=== PATIENT | female | born 1960 | race Two or more races ===

== ENCOUNTER 2018-10-06 11:18 | Inpatient (IN) | payer MEDICARE, OTHER ==
[~2018-10-06] VITALS: Ht 162.6 cm; Wt 62.3 kg
--- NOTE | 2018-10-06 11:43 | NUR ---
[id number], C/O CP NON RADIATING SINCE LAST NIGHT, METH USER FOR MORE THAN 3 YEARS, EVERYDAY. PT APPEARS VERY ANXIOUS, TACHYPNEIC. AOX3, AMBULATORY. SKIN INTACT, DENIES DIZZINESS, WEAKNESS, N/V. ENCOURAGED TO SLOW BREATHING AND BREATHE IN NOSE, OUT MOUTH. MADE COMFORTABLE. ON MONITOR AND READY FOR EVAL.
[2018-10-06] MEDS ORDERED: LORAZEPAM INJ 2 MG/ML VIAL ONE (11:48)
[2018-10-06] MEDS ORDERED: ASPIRIN 81 MG TAB.CHEW ONE (11:52)
[2018-10-06 12:00] LABS: BASOPHILS # (AUTO) 0.1 /CMM (0.0-0.2); BASOPHILS % (AUTO) 0.5 % (0.0-2.0); EOSINOPHILS % (AUTO) 0.1 % (0.0-6.0); HEMATOCRIT 33 % (33-45); HEMOGLOBIN 10.8 g/dL (11.5-14.8); LYMPHOCYTES # (AUTO) 2.2 /CMM (0.8-4.8); LYMPHOCYTES % (AUTO) 13.8 % (20.0-44.0); MEAN CORPUSCULAR HGB CONC 33 g/dl (31.0-36.0); MEAN CORPUSCULAR VOLUME 85 fL (82-100); MONOCYTES # (AUTO) 0.5 /CMM (0.1-1.30); MONOCYTES % (AUTO) 3.2 % (2.0-12.0); NEUTROPHILS # (AUTO) 13.3 /CMM (1.8-8.9); NEUTROPHILS % (AUTO) 82.4 % (43.0-81.0); PLATELET COUNT (AUTO) 482 /CMM (150-450); WHITE BLOOD COUNT (AUTO) 16.2 K/uL (4.3-11.0)
[2018-10-06] MEDS ORDERED: IV NS 0.9% 1,000 ML BAG IV ONE (12:00)
[2018-10-06] MEDS ORDERED: LORAZEPAM INJ 2 MG/ML VIAL IV ONE (12:00)
[2018-10-06] MEDS ORDERED: ASPIRIN 81 MG TAB.CHEW PO ONE (12:00)
--- NOTE | 2018-10-06 12:00 | NUR ---
XRAY AT BEDSIDE
[2018-10-06 12:13] LABS: CALCIUM, SERUM 10.1 mg/dL (8.5-10.1); CARBON DIOXIDE 29 mmol/L (21-32); CHLORIDE 100 mmol/L (98-107); CREATININE 0.6 mg/dL (0.6-1.3); GLUCOSE 111 mg/dL (74-106); POTASSIUM 3.3 mmol/L (3.5-5.1); SODIUM SERUM 134 mmol/L (136-145); UREA NITROGEN, BLOOD 8 mg/dL (7-18)
[2018-10-06 12:19] LABS: ALANINE AMINOTRANSFERASE 20 U/L (12-78); ALBUMIN 2.4 g/dL (3.4-5.0); ALKALINE PHOSPHATASE 114 U/L (46-116); ASPARTATE AMINOTRANSFERASE 14 U/L (15-37); BILIRUBIN,DIRECT 0.1 mg/dL (0.0-0.2); BILIRUBIN,TOTAL 0.4 mg/dL (0.2-1.0); TOTAL PROTEIN, SERUM 7.9 g/dL (6.4-8.2)
--- NOTE | 2018-10-06 13:40 | NUR ---
PT UP TO USE RESTROOM. STATES SHE NO LONGER FEELS CHEST PAIN
[2018-10-06] MEDS ORDERED: BUPR300T52 PO (13:53)
[2018-10-06] MEDS ORDERED: PIPERACILLIN /TAZOBACTAM 3.375 G in IV D5W 50 ML IV ONE (14:00)
[2018-10-06] MEDS ORDERED: PIPERACILLIN /TAZOBACTAM 3.375 G VIAL IV ONE (14:18)
--- NOTE | 2018-10-06 14:28 | NUR ---
SECOND LINE PLACED FOR CTA, RIGHT AC 20G
[2018-10-06] MEDS ORDERED: IOHEXOL-350 100 ML VIAL IV ONE (14:33)
[2018-10-06] MEDS ORDERED: CT SWABBABLE VALVE TRANS SET 1 EA INFUS.SET MC ONE (14:34)
[2018-10-06] MEDS ORDERED: IV NS 0.9% 250 ML IV ONE (14:34)
--- NOTE | 2018-10-06 14:44 | NUR ---
PT TAKEN TO CT VIA [facility]
--- NOTE | 2018-10-06 14:56 | NUR ---
PT BACK FROM CT. [facility].
--- NOTE | 2018-10-06 15:03 | NUR ---
ADMIT TO ROOM 315-2 DX PNEUMONIA ACCEPTING ISAIAH DELCUA
--- NOTE | 2018-10-06 15:16 | NUR ---
REPORT GIVEN TO YOAV FOR 315-2 TELE FOR GUSTAVO
[2018-10-06] MEDS ORDERED: MORPHINE SULFATE INJ 2 MG/ML DISP.SYRIN IV ONE (17:00)
[2018-10-06] MEDS ORDERED: MORPHINE SULFATE INJ 4 MG/ML DISP.SYRIN ONE (17:08)
--- NOTE | 2018-10-06 17:24 | NUR ---
PT COMPLAINING OF RETURNING CHEST PAIN 02/20. MD NOTIFIED
--- NOTE | 2018-10-06 18:13 | NUR ---
ASSISTED PT TO RESTROOM. OBTAINED URINE SAMPLE AND SENT TO STAT LAB.
[2018-10-06 18:15] LABS: APPEARANCE,URINE Clear (CLEAR); BILIRUBIN,URINE Negative (NEGATIVE); BLOOD, URINE Negative Ery/uL (NEGATIVE); COLOR,URINE Yellow (YELLOW); KETONES,URINE Negative (NEGATIVE); LEUKOCYTE ESTERASE ,URINE Negative (NEGATIVE); NITRITE, URINE Negative (NEGATIVE); PROTEIN,URINE Negative (NEGATIVE); UGLUCOSE Negative (NEGATIVE); UROBILINOGEN,URINE 0.2 EU/dL (0.2)
--- NOTE | 2018-10-06 18:32 | NUR ---
[facility]
--- NOTE | 2018-10-06 18:45 | NUR ---
RN NOTES PATIENT RECEIVED FROM [facility], A/OX4, DENIES CHEST PAIN AT THIS TIME. PLACED ON THE MONITOR. RHYTHM SHOWS SINUS TACHY 111. BREATHING EVEN AND UNLABORED, NO SOB NOTED. NEEDS ATTENDED, CALL LIGHT WITHIN REACH, WILL ENDORSE TO STUDENT SUPPORT SERVICES DIRECTOR FOR GUSTAVO.
[2018-10-06 19:03] VITALS: BP 150/83
--- NOTE | 2018-10-06 19:20 | NUR ---
TELE/RN NOTES RECEIVED PT. LYING IN BED RESTING. PT. IS EASILY AROUSABLE TO NAME. AWAKE, ALERT AND ORIENTED X3. BREATHING EVEN AND UNLABORED ON ROOM AIR. NO SOB, RESPIRATORY DISTRESS OR COMPLAINTS OF PAIN NOTED AT THIS TIME. NO COMPLAINTS OF CHEST PAIN NOTED AT THIS TIME. PT. WITH EXTERNAL B2B OUTSIDE SALES REPRESENTATIVE PRESENT AND INTACT. CURRENT RHYTHM = SINUS TACHYCARDIA HR 112. PT. WITH LEFT FOREARM 20 GAUGE IV SALINE LOCK PRESENT, PATENT AND INTACT. PT. WITH RIGHT AC 20 GAUGE IV SALINE LOCK PRESENT, PATENT AND INTACT. PT. STATES SHE IS COMFORTABLE AND WANTS TO BE LEFT ALONE TO REST AT THIS TIME, SHE IS REFUSING FULL BODY ASSESSMENT AT THIS TIME. PT. REFUSING TO ALLOW CHECKING HER BELONGINGS AT THIS TIME. AWAITING ADMITTING ORDERS. BED LOCKED AND IN LOWEST POSITION, SIDE RAILS UP X2, CALL LIGHT WITHIN REACH, WILL CONTINUE TO MONITOR.
[2018-10-06 20:00] VITALS: BP 150/83
[2018-10-06] MEDS ORDERED: Z GUARD REMEDY 2 OZ OINT TP PRN (20:00)
[2018-10-06] MEDS ORDERED: LORAZEPAM INJ 2 MG/ML VIAL IV PRN (20:00)
[2018-10-06] MEDS ORDERED: HYDROCODONE/APAP 5/325MG 1 EACH TABLET PO PRN (20:00)
[2018-10-06] MEDS ORDERED: MAG HYDROX/AL HYDROX/SIMETH 30 ML UDC PO PRN (20:00)
[2018-10-06] MEDS ORDERED: MAGNESIUM HYDROXIDE 30 ML UDC PO PRN (20:00)
[2018-10-06] MEDS ORDERED: ACETAMINOPHEN 325 MG TABLET PO PRN (20:00)
[2018-10-06] MEDS ORDERED: ALBUTEROL FS 2.5 MG/3 ML VIAL.NEB NEB PRN (20:00)
[2018-10-06] MEDS ORDERED: ONDANSETRON HCL/PF 4 MG/2 ML VIAL IVP PRN (20:00)
[2018-10-06] MEDS ORDERED: ZOLPIDEM TARTRATE 5 MG TABLET PO PRN (20:00)
[2018-10-06] MEDS ORDERED: MORPHINE SULFATE INJ 2 MG/ML DISP.SYRIN IV PRN (20:00)
[2018-10-06] MEDS ORDERED: IPRATROPIUM NEB FS 0.5 MG/2.5 ML AMPUL.NEB NEB PRN (20:00)
[2018-10-06] MEDS ORDERED: PIPERACILLIN /TAZOBACTAM 3.375 G in IV D5W 100 ML IV SCH (21:00)
[2018-10-06] MEDS ORDERED: VANCOMYCIN 1 GM in IV NS 0.9% 250 ML IV SCH (22:00)
[2018-10-06] MEDS ORDERED: VANCOMYCIN 1 GM VIAL ONE (22:04)
[2018-10-07] VITALS: BP_SYST 150; BP_SYST 168; BP_DIAS 80; BP_DIAS 83
[2018-10-07] MEDS ORDERED: PIPERACILLIN /TAZOBACTAM 3.375 G VIAL IV ONE (00:55)
--- NOTE | 2018-10-07 01:26 | NUR ---
TELE/RN NOTES PER CHARGE NURSE SAYDA EXTENDED DOSE OF ZOSYN 3.375G IVPB IS NOT AVAILABLE. CALLED [facility] SPOKE TO LANA SHE STATED OK TO RUN ZOSYN 3.375G IN 50ML OVER 30 MIN AND TO FOLLOW UP WITH PHARMACY IN THE MORNING TO CONTINUE WITH EXTENDED ZOSYN.
[2018-10-07 04:00] VITALS: BP 135/81
--- NOTE | 2018-10-07 06:55 | NUR ---
TELE/RN NOTES PT. IS LYING IN BED RESTING. BREATHING EVEN AND UNLABORED ON ROOM AIR. NO SOB, RESPIRATORY DISTRESS OR COMPLAINTS OF PAIN NOTED AT THIS TIME. PT. WITH EXTERNAL PRECAST MOLDER PRESENT AND INTACT. CURRENT RHYTHM = SINUS TACHYCARDIA HR 103. PT. WITH LEFT FOREARM 20 GAUGE IV SALINE LOCK PRESENT, PATENT AND INTACT. PT. WITH RIGHT AC 20 GAUGE IV SALINE LOCK PRESENT, PATENT AND INTACT. ALL PT. NEEDS MET. BED LOCKED AND IN LOWEST POSITION, SIDE RAILS UP X2, CALL LIGHT WITHIN REACH, WILL ENDORSE TO DAYSHIFT NURSE FOR CONTINUITY OF CARE.
[2018-10-07 07:18] LABS: BASOPHILS # (AUTO) 0.1 /CMM (0.0-0.2); BASOPHILS % (AUTO) 0.9 % (0.0-2.0); EOSINOPHILS % (AUTO) 0.8 % (0.0-6.0); HEMATOCRIT 31 % (33-45); HEMOGLOBIN 10.1 g/dL (11.5-14.8); LYMPHOCYTES # (AUTO) 3.5 /CMM (0.8-4.8); LYMPHOCYTES % (AUTO) 37.6 % (20.0-44.0); MEAN CORPUSCULAR HGB CONC 33 g/dl (31.0-36.0); MEAN CORPUSCULAR VOLUME 84 fL (82-100); MONOCYTES % (AUTO) 10.6 % (2.0-12.0); NEUTROPHILS # (AUTO) 4.7 /CMM (1.8-8.9); NEUTROPHILS % (AUTO) 50.1 % (43.0-81.0); PLATELET COUNT (AUTO) 535 /CMM (150-450); RED BLOOD CELL COUNT(AUTO) 3.64 MIL/uL (4.0-5.2); WHITE BLOOD COUNT (AUTO) 9.4 K/uL (4.3-11.0)
[2018-10-07 07:40] LABS: CALCIUM, SERUM 9.5 mg/dL (8.5-10.1); CARBON DIOXIDE 29 mmol/L (21-32); CHLORIDE 101 mmol/L (98-107); CREATININE 0.5 mg/dL (0.6-1.3); GLUCOSE 93 mg/dL (74-106); MAGNESIUM 1.5 mg/dL (1.8-2.4); SODIUM SERUM 138 mmol/L (136-145); UREA NITROGEN, BLOOD 4 mg/dL (7-18)
[2018-10-07] MEDS ORDERED: FEE PK DOSING 1 MIN EA MC ONE (07:46)
[2018-10-07 07:52] LABS: CHOLESTEROL 121 mg/dL (<200); HDL CHOLESTEROL 47 mg/dL (40-60); LDL 70 mg/dL (0-99); THYROID STIMULATING HORMONE < 0.007 uIU/mL (0.358-3.74); TRIGLYCERIDES 52 mg/dL (30-150)
[2018-10-07 08:00] VITALS: BP 141/78
--- NOTE | 2018-10-07 08:00 | NUR ---
MANAGED SERVICES SALES CONSULTANT NOTES PATIENT IN BED RESTING NO SOB OR ACUTE DISTRESS NOTED. PATIENT ALERT, ORIENTED X4. AMBULATORY. BED IN LOW LOCKED POSITION. CALL LIGHT WITHIN REACH. WILL CONTINUE TO MONITOR.
[2018-10-07] MEDS: PANTOPRAZOLE 40 MG TABLET.DR PO SCH (08:55)
[2018-10-07] MEDS: DOCUSATE SODIUM 100 MG CAPSULE PO SCH ×2 (08:56→17:26)
[2018-10-07] MEDS: POTASSIUM CHLORIDE 20 MEQ TAB.PRT.SR PO SCH ×2 (08:56→09:58)
[2018-10-07] MEDS: ASPIRIN 81 MG TAB.CHEW PO SCH (08:56)
[2018-10-07] MEDS: PIPERACILLIN /TAZOBACTAM 3.375 G in IV D5W 100 ML IV SCH ×2 (08:57→17:26)
[2018-10-07] MEDS: VANCOMYCIN 1 GM in IV D5W 250 ML IV SCH ×2 (09:46→21:11)
[2018-10-07] MEDS: POTASSIUM CL. PREMIX PERIPHER. 50 ML IV SCH ×4 (11:00→14:46)
--- NOTE | 2018-10-07 11:13 | NUR ---
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 SW met with pt. bedside. Pt. is alert and oriented x 4. Pt. has a sad affect. Pt. is pleasant and cooperative with SW during the assessment. Pt. resides alone at [address] [place] [address], in [facility] [facility]. Pt's emergency contact is her son Rohan Scanlon . Pt. did confirm that she uses crystal methamphetamines daily and has been for the past 3 years. Pt. has been to several inpatient rehabilitation programs and the last one she attended was 3 to 5 years ago. Pt. is interested in attending an Outpatient treatment program at [facility]. SW to refer pt. to [facility]. Pt. states she drinks alcohol every now and then and when she does she drinks a beer. Pt. has a history of Bipolar and is taking Wellbutrin. Pt. denies any suicidal and homicidal ideations or visual/auditory hallucinations at this time. Addendum: 10/07/18 at 1122 by CHRISTIAN THOMPSON DONNA left a voicemail message for MARYURI Gore at [facility] [phone] inquiring about referral process for the pt. to their outpatient rehabilitation program.
[2018-10-07] MEDS: Magnesium 1GM/D5W 100ML PREMIX 100 ML IV SCH ×2 (12:17→13:21)
[2018-10-07 16:00] VITALS: BP 147/81
[2018-10-07] MEDS ORDERED: POTASSIUM CHLORIDE 20 MEQ TAB.PRT.SR PO ONE (16:00)
--- NOTE | 2018-10-07 16:03 | NUR ---
SW received a call back from Garrett Abreu x [phone] from [facility] informing SW that pt. qualifies for their outpatient treatment and to have pt. call him for an intake. DONNA met with pt. bedside to give her Garrett Abreu's contact number and informed pt to give him a call to schedule an intake appointment.
--- NOTE | 2018-10-07 19:30 | NUR ---
MS RN NOTES PATIENT IN BED RESTING NO SOB OR ACUTE DISTRESS NOTED. ALL DUE MEDICATIONS ADMINISTERED. ALL NEEDS MET. PATIENT ALERT, ORIENTED X3. DENIES ANY PAINT OR DISCOMFORT. NEW PERIPHERAL IV STARTED ON RIGHT WRIST G22 INTACT PATENT. ENDORSED CARE TO PM SHIFT.
--- NOTE | 2018-10-07 19:31 | NUR ---
MS RN OPENING NOTES Received patient A/O x3, ambulatory to bathroom without assitance noted. Patient on RA, no SOB/respiratory distress noted. With patent W wrist peripheral IV line with Zosyn infusing as ordered. Kept on bed clean, dry and comfortable. Side rails x2 up, call light within easy reach. will continue to monitor accordingly.
[2018-10-07 20:00] VITALS: BP 138/87
--- NOTE | 2018-10-07 20:30 | NUR ---
MS RN NOTES Patient noted on semi-Newman's position. Patient claimed no coughing, with minimal chest pain with inhalation. Encouraged patient to assume Newman's position comfortably, patient claimed no pain on inhalation at this position. Warren was offered per patient's request. Call light within easy reach. Will continue to monitor accordingly.
--- NOTE | 2018-10-07 23:13 | NUR ---
MS RN NOTES Patient complained pain at R wrist with Vanco 1G at 250ml/hr as ordered. Transferred to [facility] @ 250ml/hr, patient complained pain. Rechecked for IV line patency, remained patent. Reduced rate to 125ml/hr with ice pack, patient tolerating well, able to sleep. Notified pharmacy, spoke with Stanislav, no problem with rate. Will continue to monitor the patient accordingly.
[2018-10-08] MEDS: PIPERACILLIN /TAZOBACTAM 3.375 G in IV D5W 100 ML IV SCH ×3 (00:07→16:54)
--- NOTE | 2018-10-08 00:51 | NUR ---
MS RN NOTES R WRIST IV SITE NOTED INFILTRATED. D/C SITE, APPLIED ICE PACK. TOLERATED BY THE PATIENT WELL, ABLE TO GO BACK TO SLEEP. WILL CONTINUE TO MONITOR ACCORDINGLY.
[2018-10-08] MEDS ORDERED: VANCOMYCIN 1 GM in IV D5W 250 ML IV SCH ×2 (06:30→10:00)
--- NOTE | 2018-10-08 06:39 | NUR ---
MS RN CLOSING NOTES Patient asleep at this time. IV meds administered as ordered. R wrist pain and swelling subsided, patient claimed not painful at this time. Noted ambulating to bathroom independently, steady gait. All nursing needs attended. Kept clean, dry and comfortable. Call light within easy reach. Endorsed to the next shift.
[2018-10-08 06:47] LABS: BASOPHILS # (AUTO) 0.1 /CMM (0.0-0.2); BASOPHILS % (AUTO) 1.4 % (0.0-2.0); EOSINOPHILS % (AUTO) 1.1 % (0.0-6.0); HEMATOCRIT 35 % (33-45); HEMOGLOBIN 11.9 g/dL (11.5-14.8); LYMPHOCYTES # (AUTO) 3.4 /CMM (0.8-4.8); LYMPHOCYTES % (AUTO) 41.9 % (20.0-44.0); MEAN CORPUSCULAR HGB CONC 34 g/dl (31.0-36.0); MEAN CORPUSCULAR VOLUME 84 fL (82-100); MONOCYTES # (AUTO) 0.7 /CMM (0.1-1.30); NEUTROPHILS # (AUTO) 3.8 /CMM (1.8-8.9); NEUTROPHILS % (AUTO) 46.6 % (43.0-81.0); PLATELET COUNT (AUTO) 585 /CMM (150-450); RED BLOOD CELL COUNT(AUTO) 4.19 MIL/uL (4.0-5.2); WHITE BLOOD COUNT (AUTO) 8.1 K/uL (4.3-11.0)
[2018-10-08 06:53] LABS: CALCIUM, SERUM 10.3 mg/dL (8.5-10.1); CREATININE 0.5 mg/dL (0.6-1.3); MAGNESIUM 1.9 mg/dL (1.8-2.4); PHOSPHORUS 4.2 mg/dL (2.5-4.9); POTASSIUM 3.8 mmol/L (3.5-5.1)
[2018-10-08 08:00] VITALS: BP 148/86
--- NOTE | 2018-10-08 08:00 | NUR ---
MS RN NOTES PATIENT IN BED RESTING NO SOB OR ACUTE DISTRESS NOTED. PATIENT ALERT, ORIENTED X3. DENIES ANY PAIN. PERIPHERAL IV INTACT PATENT. BED IN LOW LOCKED POSITION. CALL LIGHT WITHIN REACH. WILL CONTINUE TO MONITOR.
[2018-10-08] MEDS: PANTOPRAZOLE 40 MG TABLET.DR PO SCH (09:14)
[2018-10-08] MEDS: DOCUSATE SODIUM 100 MG CAPSULE PO SCH ×2 (09:14→16:57)
[2018-10-08] MEDS: ASPIRIN 81 MG TAB.CHEW PO SCH (09:14)
[2018-10-08] MEDS ORDERED: IV NS 0.9% 250 ML IV ONE (12:01)
[2018-10-08] MEDS ORDERED: IOHEXOL-350 100 ML VIAL IV ONE (12:01)
[2018-10-08] MEDS ORDERED: CT SWABBABLE VALVE TRANS SET 1 EA INFUS.SET MC ONE (12:01)
[2018-10-08 16:00] VITALS: BP 137/85
[2018-10-08] MEDS: VANCOMYCIN 1 GM in IV D5W 250 ML IV SCH (17:02)
--- NOTE | 2018-10-08 19:36 | NUR ---
MS RN NOTES PATIENT IN BED RESTING ALL DUE MEDICATIONS ADMINISTERED. ALL NEEDS MET. PERIPHERAL IV INTACT PATENT. PATIENT ALERT, ORIENTED X3. ENDORSED CARE TO PM SHIFT.
--- NOTE | 2018-10-08 19:49 | NUR ---
MS YUE INITIAL NOTES SEEN PT IN HER ROOM JUST GOT BACK USING RESTROOM. SHE REQUESTED TO BE HEPLOCK FOR NOW BECAUSE ITS DIFFICULT FOR HER WALKING WITH HER IV POLL. I TOLD HER JUST CALL US IF SHE NEEDS SOME HELPED. RFA HEPLOCK PATENT AND INTACT. DENIES ANY PAIN OR ANY DISCOMFORT. KEPT HER WARM AND COMFORTABLE AT ALL TIMES. WILL CONTINUE MONITORING.
[2018-10-08 20:00] VITALS: BP 156/83
[2018-10-08 20:17] VITALS: BP 156/83
--- NOTE | 2018-10-09 | NUR ---
MS YUE NOTES PT SLEEPING COMFORTABLY IN BED WITHOUT ANY ACUTE DISTRESS NOTED. ZOSYN IVP BAG WILL BE DUE AT 0100 AM AND BE HUNG BY ANOTHER NURSE ORDERED. WILL CONTINUE MONITORING. PLACE CALL LIGHT AT REACH.
[2018-10-09] MEDS: PIPERACILLIN /TAZOBACTAM 3.375 G in IV D5W 100 ML IV SCH ×2 (01:06→08:28)
[2018-10-09] MEDS: VANCOMYCIN 1 GM in IV D5W 250 ML IV SCH ×2 (02:03→10:52)
[2018-10-09 06:48] LABS: BASOPHILS # (AUTO) 0.1 /CMM (0.0-0.2); BASOPHILS % (AUTO) 1.1 % (0.0-2.0); EOSINOPHILS % (AUTO) 0.9 % (0.0-6.0); HEMATOCRIT 35 % (33-45); HEMOGLOBIN 11.7 g/dL (11.5-14.8); LYMPHOCYTES # (AUTO) 2.9 /CMM (0.8-4.8); LYMPHOCYTES % (AUTO) 38.4 % (20.0-44.0); MEAN CORPUSCULAR HGB CONC 34 g/dl (31.0-36.0); MEAN CORPUSCULAR VOLUME 83 fL (82-100); MONOCYTES # (AUTO) 0.8 /CMM (0.1-1.30); NEUTROPHILS # (AUTO) 3.7 /CMM (1.8-8.9); NEUTROPHILS % (AUTO) 48.6 % (43.0-81.0); PLATELET COUNT (AUTO) 516 /CMM (150-450); RED BLOOD CELL COUNT(AUTO) 4.15 MIL/uL (4.0-5.2); WHITE BLOOD COUNT (AUTO) 7.5 K/uL (4.3-11.0)
--- NOTE | 2018-10-09 07:03 | NUR ---
MS PHOSPHORUS PROCESSING SUPERVISOR CLOSING NOTES PT REMAINS SLEEPING COMFORTABLY IN BED WITHOUT ANY DISCOMFORT OR DISTRESS NOTED. ALL DUE MEDS GIVEN AND ALL NEEDS MET. NO ADVERSE REACTION NOTED CISCO THE NIGHT. KEPT HER WARM AND COMFORTABLE AT ALL TIMES. IV LINE PATENT AND INTACT. PLACE CALL LIGHT AT REACH. WILL ENDORSE TO AM NURSE FOR CONTINUITY OF CARE.
[2018-10-09 07:23] LABS: CALCIUM, SERUM 10.6 mg/dL (8.5-10.1); CREATININE 0.6 mg/dL (0.6-1.3); MAGNESIUM 1.7 mg/dL (1.8-2.4); PHOSPHORUS 4.5 mg/dL (2.5-4.9); POTASSIUM 4.2 mmol/L (3.5-5.1)
--- NOTE | 2018-10-09 07:30 | NUR ---
m/s epic beacon analyst: initial assessment received pt in bed awake, a/ox4. no c/o sob, coughing, congestion, or any discomfort. instructed to call for assistance. will continue to monitor.
[2018-10-09 08:11] VITALS: BP 150/84
[2018-10-09] MEDS: PANTOPRAZOLE 40 MG TABLET.DR PO SCH (08:15)
[2018-10-09] MEDS: DOCUSATE SODIUM 100 MG CAPSULE PO SCH (08:15)
[2018-10-09] MEDS: ASPIRIN 81 MG TAB.CHEW PO SCH (08:15)
--- NOTE | 2018-10-09 10:00 | NUR ---
M/S BOARD WRITER: NOTES RESTING COMFORTABLE IN BED. SEEN AND EXAMINED BY ISAIAH (ACNP) AND UPDATED PLAN OF CARE. PT FOR [facility] THIS AFTERNOON. DISCHARGE INSTRUCTIONS GIVEN BY ISAIAH AND PT VERBALIZED UNDERSTANDING. PT WILL GO AFTER ANTIBIOTICS.
[2018-10-09] MEDS ORDERED: MAGNESIUM OXIDE 400 MG TABLET PO ONE (11:00)
[2018-10-09] MEDS ORDERED: Magnesium 1GM/D5W 100ML PREMIX 100 ML IV SCH (11:00)
--- NOTE | 2018-10-09 11:17 | NUR ---
SW was contacted by case management, Yancy Llanos, who stated that the pt would like a brochure for [facility]. DONNA went to meet with the pt in her room and provided her with a brochure. She stated that she spoke with Garrett Abreu ([phone]) from [facility] and that she will be going to the center once she is discharged from the hospital.
--- NOTE | 2018-10-09 12:00 | NUR ---
M/S SENIOR ORACLE DBA: NOTES LUNCH SERVED. INSTRUCTED TO CALL FOR ASSISTANCE. PT AWARE FOR [facility] TODAY.
--- NOTE | 2018-10-09 14:15 | NUR ---
M/S LITIGATION ATTORNEY: NOTES RECEIVED ORDER FROM ISAIAH ([facility]) WITH ORDER TO [facility]. ORDER ACKNOWLEDGED. PT AWARE. H/L REMOVED WITH TIP INTACT WITH NO BLEEDING, NO REDNESS, AND NO SWELLING NOTED.
--- NOTE | 2018-10-09 14:25 | NUR ---
M/S LINSEED OIL REFINER: NOTES PT WILL TAKE A BUS STATED. DISCHARGED INSTRUCTIONS WITH PRESCRIPTIONS GIVEN AND PT VERBALIZED UNDERSTANDING. MEDS TEACHING PROVIDED INCLUDING SIDE EFFECTS. PT IS DRESSED.
--- NOTE | 2018-10-09 14:27 | NUR ---
M/S REAL ESTATE LAWYER: DISCHARGED DISCHARGED HOME IN STABLE CONDITION WITH ALL [facility] PAPERS AND VALUABLES.
== END 2018-10-09 14:30 | disposition home or self-care (01) | DRG 871 ==
LOC: ER 11:21 → TELE 15:07 → MED 10-07 10:13
PROVIDERS: ADMIT Hospitalist; ATTEND Hospitalist
DX: A41.9 Sepsis, unspecified organism (principal); J18.9 Pneumonia, unspecified organism; E43 Unspecified severe protein-calorie malnutrition; E87.1 Hypo-osmolality and hyponatremia; E87.6 Hypokalemia; D64.9 Anemia, unspecified; E83.42 Hypomagnesemia; F17.210 Nicotine dependence, cigarettes, uncomplicated; I25.2 Old myocardial infarction; F19.10 Other psychoactive substance abuse, uncomplicated; E88.09 Other disorders of plasma-protein metabolism, not elsewhere classified; I72.2 Aneurysm of renal artery; I34.0 Nonrheumatic mitral (valve) insufficiency; I35.1 Nonrheumatic aortic (valve) insufficiency; I10 Essential (primary) hypertension; R07.9 Chest pain, unspecified; E05.90 Thyrotoxicosis, unspecified without thyrotoxic crisis or storm; Z68.23 Body mass index [BMI] 23.0-23.9, adult
CPT/HCPCS: 36415; 71045-TC; 76536-TC; 80048-TC; 80061-TC; 80076-TC; 80202-TC; 80305; 81000-TC; 82728-TC; 83540-TC; 83690-TC; 83735-TC; 83880; 84100-TC; 84439-TC; 84443-TC; 84484-TC; 85025-TC; 85378-TC; 85730-TC; 87040-TC; 87081-TC; 87086-TC; 87400; 93307-TC; G0378; J2060; J2270; J2543; J3370; J3475; J3480; J7030; J7040; J7050; J7060; Q9967